=== PATIENT | female | born 1985 | race Hispanic/Latino ===

== ENCOUNTER 2017-02-14 16:05 | Emergency (ER) | payer MEDICAID, OTHER ==
[2017-02-14 16:33] VITALS: O2SAT 100
--- NOTE | 2017-02-14 17:18 | ED PDOC ---
HPI: Back Time Seen by Provider: 02/14/17 16:40 Chief Complaint (Nursing): Chest Pain Chief Complaint (Provider): Upper back pain History Per: Patient History/Exam Limitations: no limitations Onset/Duration Of Symptoms: Days (3) Current Symptoms Are (Timing): Still Present Quality Of Discomfort: Burning, "Pain" Severity: Moderate Additional Complaint(s): Flaca Ruiz is a 31 y/o female presenting to the ER on 02/14/2017 with complaints of upper back pain for three days. Patient reports she was seen by her primary doctor three days ago for similar complaints, which have not resolved despite using Tramadol at home. She states the pain is localized primarily in her right upper back, but has radiation to her neck and down to her shoulder, arm, and into the chest. Patient further states the pain is a "burning sensation". She denies any associated fever, chills, or vomiting but reports experiencing headaches. Past Medical History Reviewed: Historical Data, Nursing Documentation, Vital Signs Vital Signs: Last Vital Signs Temp 98.9 F 02/14/17 16:31 Pulse 96 H 02/14/17 16:31 Resp 16 02/14/17 16:31 BP 120/62 02/14/17 16:31 Pulse Ox 100 02/14/17 16:31 - Medical History PMH: Back Problems - Surgical History Surgical History: Tonsillectomy - Social History Current smoker - smoking cessation education provided: No Alcohol: None Drugs: Denies - Home Medications Home Medications: Ambulatory Orders Medication Instructions Recorded Naproxen [Naprosyn] 500 mg PO Q12 PRN #20 tab 07/11/14 diaZEpam [Valium] 5 mg PO Q6 PRN #10 tab 07/11/14 oxyCODONE/Acetaminophen [Percocet 1 ea PO Q6 PRN #12 tab 07/11/14 5/325 mg Tab] Docusate Sodium [Colace] 100 mg PO Q12 #20 sgl 10/12/14 - Allergies Allergies/Adverse Reactions: Allergies Allergy/AdvReac Type Severity Reaction Status Date / Time Sulfa (Sulfonamide Allergy Intermediate RASH Verified 02/14/17 16:30 Antibiotics) Review of Systems ROS Statement: Except As Marked, All Systems Reviewed And Found Negative Constitutional: Negative for: Fever, Chills Cardiovascular: Positive for: Chest Pain Gastrointestinal: Negative for: Vomiting Musculoskeletal: Positive for: Neck Pain, Shoulder Pain, Arm Pain, Back Pain Neurological: Positive for: Headache. Negative for: Weakness, Numbness Physical Exam - Reviewed Nursing Documentation Reviewed: Yes Vital Signs Reviewed: Yes - Physical Exam Appears: Positive for: Non-toxic, Uncomfortable Head Exam: Positive for: ATRAUMATIC, NORMOCEPHALIC Skin: Positive for: Normal Color. Negative for: Rash Eye Exam: Positive for: Normal appearance Neck: Positive for: Normal Cardiovascular/Chest: Positive for: Regular Rate, Rhythm. Negative for: Murmur Respiratory: Positive for: Normal Breath Sounds. Negative for: Respiratory Distress Back: Positive for: Normal Inspection Extremity: Positive for: Normal ROM. Negative for: Deformity, Swelling Neurologic/Psych: Positive for: Alert, Oriented. Negative for: Motor/Sensory Deficits - Laboratory Results Result Diagrams: 02/14/17 17:30 02/14/17 17:30 - ECG ECG Rhythm: Positive for: Sinus Rhythm (93 bpm ) O2 Sat by Pulse Oximetry: 100 Medical Decision Making Medical Decision Makin:20 Initial Impression- 31 y/o female with upper back and neck pain Initial Plan- * CT Cervical Spine w/o contrast * CMP * CBC w/ differential * Toradol 30 mg IV 18:42 Patient reports improved condition after Toradol injection. 19:00 Signing patient out to Dr. Maria Esther MD. Pending CT. Documented by Linda Whyte, acting as a scribe for Nicole Hyatt MD. All medical record entries made by the Scribe were at my direction and personally dictated by me. I have reviewed the chart and agree that the record accurately reflects my personal performance of the history, physical exam, medical decision making, and the department course for this patient. I have also personally directed, reviewed, and agree with the discharge instructions and disposition. Disposition - Disposition Disposition: Transfer of Care Disposition Time: 19:00 Forms: [employer] (Burkinan) Patient Signed Over To: Quinn Mayo
[2017-02-14 17:42] LABS: BASO % 0.3 % (0.0-2.0); EOS % 0.5 % (0.0-4.0); HEMOGLOBIN 11.8 g/dL (12.0-16.0); LYMPH # 1.1 K/uL (1.0-4.3); LYMPH % 12.6 % (20.0-40.0); MEAN CELL VOLUME 83.6 fl (81.0-99.0); MEAN CORPUSCULAR HEMOGLOBIN 27.5 pg (27.0-31.0); MEAN CORPUSCULAR HGB CONC 32.9 g/dL (33.0-37.0); MEAN PLATELET VOLUME 7.8 fl (7.2-11.7); MONO # 0.5 K/uL (0.0-0.8); MONO % 5.8 % (0.0-10.0); NEUT # 6.9 K/uL (1.8-7.0); NEUT % 80.8 % (50.0-75.0); RBC 4.29 Mil/uL (3.80-5.20); WHITE BLOOD COUNT 8.5 K/uL (4.8-10.8)
[2017-02-14 18:00] LABS: ALB/GLOB RATIO 1.7 (1.0-2.1); ALBUMIN 4.5 g/dL (3.5-5.0); ALT/SGPT 32 U/L (9-52); AST/SGOT 26 U/L (14-36); BLOOD UREA NITROGEN 13 mg/dl (7-17); GFR AFRICAN-AMERICAN > 60; GFR NON-AFRICAN AMERICAN > 60
--- NOTE | 2017-02-14 19:28 | ED PDOC ---
- Laboratory Results Result Diagrams: 02/14/17 17:30 02/14/17 17:30 - ECG O2 Sat by Pulse Oximetry: 100 - Progress Re-evaluation Time: 20:31 Condition: Re-examined, Improved Medical Decision Making Medical Decision Makin:00 Patient signed out to me by Dr. Olena MD. Pending CT results Documented by Linda Whyte, acting as a scribe for Quinn Mayo MD. CT CERVICAL FINDINGS: Vertebrae: There is maintenance of the cervical lordosis. There is no prevertebral soft tissue swelling. There are no fractures. Cervical vertebral bodies are normal in height and alignment. There is posterior disc space narrowing C3-4, C4-5 and C5-6. There is mild disc space narrowing C6/C7. There is asymmetric disc bulging C6/C7 greatest on the right.Facet joints align anatomically.Spinous processes align in the expected fashion. Discs/spinal canal/neural foramina: See above. Soft tissues: See above. Thyroid: Thyroid is unremarkable Lung apices: Lung apices are clear Other findings: Bony mineralization is normal. IMPRESSION: Asymmetric disc bulging C6/C7 greatest on the right; no fracture All medical record entries made by the Scribe were at my direction and personally dictated by me. I have reviewed the chart and agree that the record accurately reflects my personal performance of the history, physical exam, medical decision making, and the department course for this patient. I have also personally directed, reviewed, and agree with the discharge instructions and disposition. Disposition Doctor Will See Patient In The: Office Counseled Patient/Family Regarding: Studies Performed, Diagnosis, Need For Followup - Clinical Impression Clinical Impression: Cervical radiculopathy - POA Present On Arrival: None - Disposition Referrals: Jairo Cuellar MD [Staff Provider] - Royce Hinojosa MD [Staff Provider] - Disposition: Routine/Home Disposition Time: 20:32 Condition: GOOD Additional Instructions: Take medications as instructed. Stop taking SOMA and take flexeryl. Follow up with your PCP in 2-3 days. Prescriptions: Cyclobenzaprine [Cyclobenzaprine HCl] 10 mg PO TID #15 tab Methylprednisolone [Medrol Dose Pack (21 tabs)] 4 mg PO ASDIR #21 mg Instructions: Cervical Disc Herniation (ED), Cervical Radiculopathy (ED) Forms: [employer] (Grenadian)
[2017-02-14] MEDS ORDERED: Dexamethasone 4 mg/1 ml IVP STA (19:29)
[2017-02-14 20:49] VITALS: BP 127/70; PULSE 65; RESP 26; TEMP 98.3
--- NOTE | 2017-02-15 08:28 | CT ---
PROCEDURE: CT Cervical Spine without contrast HISTORY: Neck pain COMPARISON: None available. TECHNIQUE: Axial computed tomography images were obtained of the cervical spine without the use of intravenous contrast. Coronal and sagittal reformatted images were created and reviewed. Radiation dose: Total exam DLP = 488.56 mGy-cm. This CT exam was performed using one or more of the following dose reduction techniques: Automated exposure control, adjustment of the mA and/or kV according to patient size, and/or use of iterative reconstruction technique. FINDINGS: VERTEBRAE: Vertebral bodies are maintained in height. The transverse processes and posterior elements are intact. Normal vertebral alignment is maintained. The atlantoaxial articulation and odontoid process are intact. DISCS/SPINAL CANAL/NEURAL FORAMINA: There is minimal narrowing of the C6-7 intervertebral disc space consistent with degenerative disc disease. The remaining disc spaces are maintained in height. There is mild posterior osteophyte formation seen at the C6-7 disc space level. . There is a right parasagittal disc herniation at C6-7. This does not result in any neural foraminal or central spinal canal stenosis. There is likely mass effect upon the thecal sac as result of this disc herniation. PARASPINAL SOFT TISSUES: Unremarkable. OTHER FINDINGS: None. IMPRESSION: Right parasagittal disc herniation at C6-7. Degenerative disc disease at C6-7. No fracture/ dislocation. Consider further evaluation with magnetic resonance imaging if clinically warranted. . Preliminary interpretation of this examination was reported by [facility] at 6:26 p.m. on 02/14/2017. There is general concurrence of this report with the preliminary interpretation.
== END 2017-02-14 21:00 | disposition home or self-care (01) ==
LOC: H.ER 16:05
DX: M54.12 Radiculopathy, cervical region (principal)

== ENCOUNTER 2018-09-18 20:53 | Emergency (ER) | payer BC, OTHER ==
[2018-09-18 21:02] VITALS: O2SAT 100; BMI 30.9
[2018-09-18] MEDS ORDERED: Sodium Chloride 0.9% 1,000 ML IV STA (21:48)
[2018-09-18] MEDS ORDERED: Albuterol-Ipratrop 3 mg / 0.5 (3 ml) UD IH STA (21:48)
--- NOTE | 2018-09-18 21:54 | ED PDOC ---
HPI: Chest Pain Time Seen by Provider: 09/18/18 21:24 Chief Complaint (Nursing): Chest Pain Chief Complaint (Provider): chest pain History Per: Patient History/Exam Limitations: no limitations Onset/Duration Of Symptoms: Days (5) Current Symptoms Are (Timing): Still Present Quality: "Pain" Associated Symptoms: Dyspnea Exacerbating Factors: Deep Breathing Additional Complaint(s): 33 y/o female presents for evaluation of midsternal chest pain x 5 days. Patient reports associated productive cough x 10 days; states she went to Urgent Care and was prescribed a Zpak for bronchitis last week which she finished without improvement. Patient states she followed up with her primary doctor yesterday and was prescribed cefdinir. Patient states she also had a CT scan of her chest done yesterday because 2 weeks ago she had a pre-op chest xray for back surgery and was told her mediastinum "wasn't clear"; states cough symptoms started a few days after the xray. Denies fever, nausea/vomiting, headache, dizziness, palpitations, leg pain/swelling, recent travel. Past Medical History Reviewed: Historical Data, Nursing Documentation Vital Signs: Last Vital Signs Temp 98.0 F 09/18/18 21:02 Pulse 99 H 09/18/18 21:02 Resp 20 09/18/18 21:02 BP 143/89 09/18/18 21:02 Pulse Ox 100 09/18/18 21:02 - Medical History PMH: Back Problems - Surgical History Surgical History: Tonsillectomy - Family History Family History: States: Unknown Family Hx - Home Medications Home Medications: Ambulatory Orders Medication Instructions Recorded Naproxen [Naprosyn] 500 mg PO Q12 PRN #20 tab 07/11/14 diaZEpam [Valium] 5 mg PO Q6 PRN #10 tab 07/11/14 oxyCODONE/Acetaminophen [Percocet 1 ea PO Q6 PRN #12 tab 07/11/14 5/325 mg Tab] Docusate Sodium [Colace] 100 mg PO Q12 #20 sgl 10/12/ Cyclobenzaprine [Cyclobenzaprine 10 mg PO TID #15 tab 02/14/17 HCl] Methylprednisolone [Medrol Dose 4 mg PO ASDIR #21 mg 02/14/17 Pack (21 tabs)] Albuterol HFA [Ventolin HFA 90 1 puff IH Q4 PRN #1 inh 09/19/18 mcg/actuation (8 g)] Cyclobenzaprine [Cyclobenzaprine 10 mg PO BID PRN #14 tab 09/19/18 HCl] Famotidine [Pepcid] 20 mg PO BID #14 tab 09/19/18 Naproxen [Naprosyn] 500 mg PO Q12 PRN #14 tablet 09/19/18 - Allergies Allergies/Adverse Reactions: Allergies Allergy/AdvReac Type Severity Reaction Status Date / Time Sulfa (Sulfonamide Allergy Intermediate RASH Verified 09/18/18 21:01 Antibiotics) Review of Systems ROS Statement: Except As Marked, All Systems Reviewed And Found Negative Cardiovascular: Positive for: Chest Pain Respiratory: Positive for: Cough, Shortness of Breath, Sputum Physical Exam - Reviewed Nursing Documentation Reviewed: Yes Vital Signs Reviewed: Yes - Physical Exam Appears: Positive for: Well, Non-toxic, No Acute Distress Head Exam: Positive for: ATRAUMATIC, NORMAL INSPECTION, NORMOCEPHALIC Skin: Positive for: Normal Color Eye Exam: Positive for: Normal appearance ENT: Positive for: Normal ENT Inspection Cardiovascular/Chest: Positive for: Regular Rate, Rhythm. Negative for: Chest Non Tender (moderate tenderness upon palpation of right, midsternal, and left upper chest wall) Respiratory: Positive for: Normal Breath Sounds Gastrointestinal/Abdominal: Positive for: Normal Exam Back: Positive for: Normal Inspection Extremity: Positive for: Normal ROM Neurologic/Psych: Positive for: Alert, Oriented (x3) - Laboratory Results Result Diagrams: 09/18/18 22:05 09/18/18 22:05 - ECG ECG: Positive for: Viewed By Me (reviewed by ED attending) ECG Rhythm: Positive for: Sinus Rhythm O2 Sat by Pulse Oximetry: 100 - Progress ED Course And Treament: -cbc -cmp -troponin -d dimer -ekg -IV NS bolus -IV toradol -duoneb PERC negative Patient afebrile, normal WBC, O2 sat 100%; no indication to radiate with cxr as patient had CT chest yesterday in which she will be getting results tomorrow Patient reports some improvement of pain on re-eval Patient educated on findings, discharged with rx Albuterol HFA, naproxen, pepcid, flexeril Advised to follow up with PMD in am for CT results Continue antibiotics Return precautions given Disposition - Clinical Impression Clinical Impression: Atypical chest pain, Bronchitis - Patient ED Disposition Is Patient to be Admitted: No Counseled Patient/Family Regarding: Studies Performed, Diagnosis, Need For Followup, Rx Given - Disposition Disposition: Routine/Home Disposition Time: : Condition: IMPROVED Prescriptions: Albuterol HFA [Ventolin HFA 90 mcg/actuation (8 g)] 1 puff IH Q4 PRN #1 inh PRN Reason: Wheezing Cyclobenzaprine [Cyclobenzaprine HCl] 10 mg PO BID PRN #14 tab PRN Reason: Muscle Spasm Famotidine [Pepcid] 20 mg PO BID #14 tab Naproxen [Naprosyn] 500 mg PO Q12 PRN #14 tablet PRN Reason: Pain, Moderate (4-7) Instructions: Acute Bronchitis, Chest Pain That Is Not Caused by the Heart (DC) Forms: [employer] (Martiniquais)
[2018-09-18] MEDS ORDERED: Albuterol-Ipratrop 3 mg / 0.5 (3 ml) UD ONE (22:20)
[2018-09-18 22:31] LABS: BASO % 0.4 % (0.0-2.0); EOS # 0.1 K/uL (0.0-0.7); EOS % 1.1 % (0.0-4.0); HEMOGLOBIN 11.1 g/dL (12.0-16.0); LYMPH # 1.9 K/uL (1.0-4.3); LYMPH % 30.2 % (20.0-40.0); MEAN CELL VOLUME 80.4 fl (81.0-99.0); MEAN CORPUSCULAR HGB CONC 32.3 g/dL (33.0-37.0); MEAN PLATELET VOLUME 7.7 fl (7.2-11.7); MONO # 0.3 K/uL (0.0-0.8); MONO % 4.9 % (0.0-10.0); NEUT % 63.4 % (50.0-75.0); NRBC % 0.1 % (0.0-0.0); RBC 4.26 Mil/uL (3.80-5.20); RED CELL DISTRIBUTION WIDTH 13.7 % (11.5-14.5); WHITE BLOOD COUNT 6.3 K/uL (4.8-10.8)
[2018-09-18 22:38] LABS: ALB/GLOB RATIO 1.5 (1.0-2.1); ALBUMIN 4.4 g/dL (3.5-5.0); ALT/SGPT 31 U/L (9-52); AST/SGOT 44 U/L (14-36); BLOOD UREA NITROGEN 14 mg/dl (7-17); CALCIUM 9.4 mg/dL (8.4-10.2); GFR NON-AFRICAN AMERICAN > 60
[2018-09-19 05:13] VITALS: BP 132/77; PULSE 80; RESP 16; TEMP 97.8
--- NOTE | 2018-09-19 11:27 | CARD ---
APPROVED REPORT Date of service: 09/18/2018 EKG Measurement Heart [id number] <Conclusion> Normal sinus rhythm Normal ECG
== END 2018-09-19 01:30 | disposition home or self-care (01) ==
LOC: H.ER 20:53
DX: R07.89 Other chest pain (principal); J40 Bronchitis, not specified as acute or chronic; Z88.2 Allergy status to sulfonamides
CPT/HCPCS: 80053; 81025; 83605; 84484; 85025; 85378; 87040; 93005; 94640; 96361; 96374; 99285; J1885; J7030